=== PATIENT | male | born 1995 | race Caucasian/White ===

== ENCOUNTER 2017-01-04 13:39 | Emergency (ER) | payer MEDICAID ==
[2017-01-04 13:45] VITALS: BP 137/89; PULSE 79; RESP 18; TEMP 97.7; O2SAT 96
--- NOTE | 2017-01-04 14:11 | EDPHY ---
H & P Time Seen by Provider: 01/04/17 14:07 HPI/ROS: CHIEF COMPLAINT: Ankle injury HISTORY OF PRESENT ILLNESS: The patient is a 21 year old male presenting with right ankle injury. The patient tripped on carpet going upstairs and rolled his ankle. Immediate onset of pain and swelling. He is able to ambulate, but has associated moderate pain. No associated sx. He reports no other injuries. ROS: No numbness, weakness, bleeding, syncopal episode, other injury. Past Medical/Surgical History: Denies. Social History: Single. Lives in [place]. Smoking Status: Never smoked Physical Exam: Alert and oriented, no acute distress Extremities: Right ankle with swelling over the lateral malleolus. There is no posterior lateral malleolus tenderness, midfoot tenderness, or proximal fifth metatarsal tenderness. The ankle is stable and the Achilles tendon is intact. Vascular: Pedal pulses 2+ Neurologic: Ankle and foot with normal sensation and strength Skin: Intact. Constitutional: Initial Vital Signs Temperature (C) 36.5 C 01/04/17 13:41 Heart Rate 79 01/04/17 13:41 Respiratory Rate 18 01/04/17 13:41 Blood Pressure 137/89 H 01/04/17 13:41 O2 Sat (%) 96 01/04/17 13:41 O2 Delivery Mode Room Air Allergies/Adverse Reactions: No Known Allergies Allergy (Verified 01/04/17 13:40) Home Medications: Medication Instructions Recorded NK [No Known Home Meds] 01/04/17 Medical Decision Making - Diagnostics Imaging: Study: X-ray of the ankle was obtained. Results: No fracture. Images were interpreted by the radiologist, Dr. Garvin. I viewed the images myself on the PACS system. ED Course/Re-evaluation: Ankle x-ray was ordered. No acute fracture. A Velcro stirrup splint was placed and crutches dispensed. Neurovascularly intact after splint application Departure - Departure Disposition: Home, Routine, Self-Care Clinical Impression: Ankle sprain Qualifiers: Encounter type: initial encounter Involved ligament of ankle: unspecified ligament Laterality: right Qualified Code(s): S93.401A - Sprain of unspecified ligament of right ankle, initial encounter Condition: Good Instructions: Ankle Sprain (ED) Additional Instructions: 1. Rest, ice, and elevate the ankle. 2. Take 600mg Ibuprofen every 6 hours as needed for pain and swelling. 3. Wear the ankle splint as needed. Use crutches as needed. Weight bear as tolerated. Referrals: Megan Borges MD [Medical Doctor] - As per Instructions (Orthopedic surgery) Stand Alone Forms: Work Excuse Report Scribed for: Courtney Rutledge Report Scribed by: Ella Waters Date of Report: 01/04/17 Time of Report: 14:10 Physician Review and Approval Statement: 01/04/17 14:10 Portions of this note were transcribed by a resident medical officer. I personally performed the history, physical exam, and medical decision-making; and confirmed the accuracy of the information in the transcribed note.
== END 2017-01-04 14:32 | disposition home or self-care (01) ==
DX: S93.401A Sprain of unspecified ligament of right ankle, initial encounter (principal); W18.49XA Other slipping, tripping and stumbling without falling, initial encounter; Y93.89 Activity, other specified
CPT/HCPCS: L4350